=== PATIENT | male | born 1945 | race Caucasian/White ===

== ENCOUNTER → 2016-05-07 09:03 | Outpatient (CLI) | payer MEDICARE ==
[2015-09-09 10:51] VITALS: BMI 27.5
[~2016-05-07 09:03] MED LIST: HYDROCODON-ACET15 ML PO; HYDROCODONE-APA1 TAB PO; PLAVIX75 MG PO; PRILOSEC20 MG PO
== END | disposition home or self-care (01) ==
LOC: D.NM 09:03
DX: R68.81 Early satiety (principal)

== ENCOUNTER → 2016-06-04 11:43 | Outpatient (CLI) | payer MEDICARE ==
[2015-09-09 10:51] VITALS: BMI 27.5
[2016-06-09 03:09] LABS: OVA + PARASITE EXAM Final report (())
== END | disposition home or self-care (01) ==
LOC: D.LAB 09:30
PROVIDERS: Internal Medicine Gastroenterology
DX: R19.7 Diarrhea, unspecified (principal)

== ENCOUNTER 2016-09-10 20:41 | Emergency (ER) | payer MEDICARE ==
[2015-09-09 10:51] VITALS: BMI 27.5
[2016-09-10 21:37] LABS: APPEARANCE CLEAR (CLEAR); COLOR YELLOW (YELLOW); LEUKOCYTE ESTERASE NEGATIVE (NEGATIVE); NITRITE NEGATIVE (NEGATIVE); PROTEIN TRACE mg/dL (NEGATIVE); SPECIFIC GRAVITY 1.025 (1.005-1.020)
[2016-09-10 21:38] LABS: BILIRUBIN NEGATIVE (NEGATIVE); GLUCOSE NEGATIVE (NEGATIVE); KETONE NEGATIVE (NEGATIVE); UROBILINOGEN NORMAL (NORMAL)
[2016-09-10 22:41] LABS: BASOPHILS 0.2 % (0-2); EOSINOPHILS 0.9 % (0-7); HEMATOCRIT 44.7 % (42.0-54.0); IMMATURE GRANULOCYTES 0.2 % (0-5); LYMPHOCYTES 9.9 % (15-50); MCH 30.6 pg (26.0-34.0); MCHC 33.6 g/dL (31.0-37.0); MCV 91.2 fL (80.0-100.0); MEAN PLATELET VOLUME 10.1 fL (7.4-10.4); MONOCYTES 6.5 % (2-11); NEUTROPHILS 82.3 % (40-80); PLATELET COUNT 164 10x3/uL (130-400); RDW 13.4 % (11.5-14.5); WBC 10.2 10x3/uL (4.8-10.8)
[2016-09-10 22:57] LABS: ALBUMIN 3.6 g/dL (3.4-5.0); ALKALINE PHOSPHATASE 80 U/L (46-116); ALT (SGPT) 19 U/L (10-68); BILIRUBIN - TOTAL 0.46 mg/dL (0.2-1.3); CALC OSMOLALITY 284 mosm/kg (275-300); CALCIUM 8.3 mg/dL (8.5-10.1); CARBON DIOXIDE 29.2 mmol/L (21.0-32.0); CHLORIDE - SERUM 106 mmol/L (98-107); GLUCOSE 108 mg/dL (74-106); POTASSIUM - SERUM 3.8 mmol/L (3.5-5.1); PROTEIN - SERUM 6.7 g/dL (6.4-8.2); SODIUM 142 mmol/L (136-145); UREA NITROGEN 14 mg/dL (7-18); eGFR NON AFRICAN AMERICAN 78 mL/min (90-120)
[2016-09-10 23:01] LABS: CREATINE KINASE 114 UL (21-232)
[2016-09-10 23:02] LABS: TROPONIN-I < 0.017 ng/mL (0.000-0.060)
== END 2016-09-11 00:47 | disposition home or self-care (01) ==
LOC: D.ER 20:41
PROVIDERS: Nurse Practitioner Family
DX: R55 Syncope and collapse (principal); K21.9 Gastro-esophageal reflux disease without esophagitis; R41.82 Altered mental status, unspecified; R56.9 Unspecified convulsions; R42 Dizziness and giddiness; I49.3 Ventricular premature depolarization; I45.10 Unspecified right bundle-branch block

== ENCOUNTER → 2019-10-23 13:04 | Outpatient (CLI) | payer OTHER ==
[2015-09-09 10:51] VITALS: BMI 27.5
== END | disposition home or self-care (01) ==
LOC: D.MRI 13:04
PROVIDERS: ATTEND Orthopaedic Surgery
DX: M75.42 Impingement syndrome of left shoulder (principal)